=== PATIENT | female | born 1955 | race Caucasian/White ===

== ENCOUNTER 2018-04-27 11:39 | Day surgery (SDC) | payer BC ==
[2018-04-27] MEDS ORDERED: PROPOFOL 20 ML ×2 (13:28→14:49)
[2018-04-27] MEDS ORDERED: FENTAnyl 50 MCG/ML VIAL (13:28)
[2018-04-27] MEDS ORDERED: HYDROmorphONE 1 MG/5 ML IV SYRINGE IV ×2 (13:30)
[2018-04-27] MEDS ORDERED: MEPERIDINE 25 MG INJ IV (13:30)
[2018-04-27] MEDS ORDERED: ALBUTEROL 0.083% (NEB) 2.5 MG/3 ML AMP HHN (13:30)
[2018-04-27] MEDS ORDERED: DIPHENHYDRAMINE 50 MG INJ IV (13:30)
[2018-04-27] MEDS ORDERED: FENTAnyl 50 MCG/ML VIAL IV ×2 (13:30)
[2018-04-27] MEDS ORDERED: SUCCINYLCHOLINE CHLORIDE 100 MG/5 ML SYG IV (13:50)
[2018-04-27] MEDS ORDERED: LIDOCAINE 2% (SDV) 5 ML INJ (13:50)
[2018-04-27] MEDS ORDERED: DESFLURANE 15 MIN (13:50)
[2018-04-27] MEDS: BUPIVACAINE 0.5% (SDV) 30 ML INJ (14:05)
[2018-04-27] MEDS ORDERED: NEOSTIGMINE 3 MG/3 ML SYRINGE (14:49)
[2018-04-27] MEDS ORDERED: ROCURONIUM 50 MG INJ (14:49)
[2018-04-27] MEDS ORDERED: CEFAZOLIN 1 GM INJ (14:49)
[2018-04-27] MEDS ORDERED: GLYCOPYRROLATE 0.4 MG INJ (14:49)
[2018-04-27] MEDS: FENTAnyl 50 MCG/ML VIAL IV (15:54)
[2018-04-27] MEDS: HYDROmorphONE 1 MG/5 ML IV SYRINGE IV (15:54)
[2018-04-27] MEDS: ONDANSETRON 4 MG INJ IV (16:19)
[2018-04-27] MEDS: METOCLOPRAMIDE 10 MG INJ IV (17:23)
== END 2018-04-27 18:09 | disposition home or self-care (01) ==
LOC: SDS 11:39
DX: T84.84XA Pain due to internal orthopedic prosthetic devices, implants and grafts, initial encounter (principal); Y79.3 Surgical instruments, materials and orthopedic devices (including sutures) associated with adverse incidents; D16.32 Benign neoplasm of short bones of left lower limb; L72.0 Epidermal cyst; Z47.2 Encounter for removal of internal fixation device
CPT/HCPCS: 20680; 73630; 88300; 88304